=== PATIENT | female | born 1995 | race Caucasian/White ===

== ENCOUNTER → 2018-03-08 17:31 | Outpatient (CLI) | payer MEDICAID, SELFPAY ==
[2018-03-08 14:46] VITALS: BMI 25.0
[2018-03-12 13:55] LABS: HPV Reflexed? NOT INDICATED
--- OUTSIDE RECORDS SUMMARY | 2018-05-11 04:45 | XMS RPT_ITS ---
:1995 Author Organization [facility] Care Team Providers Name Role Phone Mary Mcqueen Attending Unavailable Primay Care Physicia, No Referring Unavailable Mary Mcqueen Attending Unavailable Primay Care Physicia, No Primary Care Unavailable Mary Mcqueen Referring Unavailable Mary Mcqueen Attending Unavailable Mary Mcqueen Referring Unavailable Jo Jean Primary Care Unavailable PROBLEMS PROBLEMS DATE TYPE CONDITION / CODE ATTENDING STATUS SOURCE 03/09/2018 Unknown Z12.4 - Encounter Nadege Mcqueen for screening for [facility] malignant neoplasm [facility] cervix / Repository Z12.4(ICD-10) 03/08/2018 Unknown Z30.431 - Encounter Nadege Mcqueen for routine [facility] intrauterine Repository contraceptive device / Z30.431(ICD-10) PROCEDURES PROCEDURES No Procedure Records FoundRESULTS RESULTS TRANSVAGINAL Observed: 03/09/2018 Status: F Source: [place] NON- 2:15 PM [facility] REPOSITORY [facility] Imaging Services [address] [place] [address] Transvaginal Non- MR#: [id number] Acct: [id number] Name: BERONICA SAUL Rep #: [id number] : 1995 F 22 From: Chito Urbano MD PCP: Jo Jean MD Status: REG CLI Study: Transvaginal Non- Date of Exam: 03/09/18 Exam# [id number] Ordering Dr: Mary Mcqueen MD STUDY: ULTRASOUND OF THE FEMALE PELVIS - COMPLETE REASON FOR EXAM: Female, 22 years old. IUD placement. LMP: February 01, 2018. TECHNIQUE: Transabdominal and Transvaginal TECHNICAL QUALITY: Adequate. COMPARISON: None. FINDINGS: The uterus is retroflexed and is in a midline position. The uterus measures 10.4 cm x 5.9 cm x 3.8 cm. There is a Nabothian cyst of the cervix. The endometrium measures 5.9 mm in thickness, and is hyperechoic. There is no demonstrated endometrial mass. There is no demonstrated myometrial mass. The uterine echotexture is heterogeneous. Increased vascularity within the uterus. I.U.D. - The patient does have an I.U.D. the IUD is within the cervix. The right ovary is visualized. The right ovary measures 3.1 cm x 1.8 cm x 1.6 cm. There is no right ovarian cyst or ovarian mass. There is no visualized right adnexal mass or complex lesion. There is normal arterial and normal venous vascularity. The left ovary is visualized. The left ovary measures 3.6 cm x 3.4 cm x 2.1 cm. There is a 3 cm x 3.3 cm x 1.9 cm left ovarian cyst. There is no visualized left adnexal mass or complex lesion. There is normal arterial and normal venous vascularity. There is no fluid in the cul-de-sac. The pre void volume of the bladder was 102 ml. Polycystic ovary disease: No. US/Transvaginal Non- IMPRESSION: The IUD is seen within the cervix. Left ovarian cyst. Heterogeneous echotexture of the uterus without focal fibroids. Electronically Signed: Chito Urbano MD at 9:07 EST Tel [phone], Service support , CC: oJ Jean MD; Mary Mcqueen MD Hearth Feeder: Signed PELVIC (NON ) Observed: 03/09/2018 Status: F Source: [place] 1:48 PM [facility] REPOSITORY [facility] Imaging Services [address] [place] [address] Pelvic (Non ) MR#: [id number] Acct: [id number] Name: BERONICA SAUL Rep #: [id number] : 1995 F 22 From: Chito Urbano MD PCP: Jo Jean MD Status: REG CLI Study: Pelvic (Non ) Date of Exam: 03/09/18 Exam# [id number] Ordering Dr: Mary Mcqueen MD STUDY: ULTRASOUND OF THE FEMALE PELVIS - COMPLETE REASON FOR EXAM: Female, 22 years old. IUD placement. LMP: February 01, 2018. TECHNIQUE: Transabdominal and Transvaginal TECHNICAL QUALITY: Adequate. COMPARISON: None. FINDINGS: The uterus is retroflexed and is in a midline position. The uterus measures 10.4 cm x 5.9 cm x 3.8 cm. There is a Nabothian cyst of the cervix. The endometrium measures 5.9 mm in thickness, and is hyperechoic. There is no demonstrated endometrial mass. There is no demonstrated myometrial mass. The uterine echotexture is heterogeneous. Increased vascularity within the uterus. I.U.D. - The patient does have an I.U.D. the IUD is within the cervix. The right ovary is visualized. The right ovary measures 3.1 cm x 1.8 cm x 1.6 cm. There is no right ovarian cyst or ovarian mass. There is no visualized right adnexal mass or complex lesion. There is normal arterial and normal venous vascularity. The left ovary is visualized. The left ovary measures 3.6 cm x 3.4 cm x 2.1 cm. There is a 3 cm x 3.3 cm x 1.9 cm left ovarian cyst. There is no visualized left adnexal mass or complex lesion. There is normal arterial and normal venous vascularity. There is no fluid in the cul-de-sac. The pre void volume of the bladder was 102 ml. Polycystic ovary disease: No. US/Pelvic (Non ) IMPRESSION: The IUD is seen within the cervix. Left ovarian cyst. Heterogeneous echotexture of the uterus without focal fibroids. Electronically Signed: Chito Urbano MD at 9:07 EST Tel [phone], Service support , CC: Jo Jean MD; Mary Mcqueen MD Hearth Feeder: Signed ORACLE TECHNICAL DEVELOPER OFFICE VISIT Observed: 03/08/2018 Status: F Source: [place] REPORT 3:53 PM [facility] REPOSITORY [facility] [address] [place] [address]. [address] [place] [address] OFFICE VISIT Date of Service: 03/08/18 MR#: [id number] Acct: [id number] Name: BERONICA SAUL Rep #: [id number] : 1995 Provider: Mary Mcqueen MD Age/Sex: 22/F [place] [facility] [place]: Signed Intake Vital Signs03/08/18 Height 5 ft 2 in 03/08/18 Weight: 137 lb 03/08/18 Body Mass Index (BMI) 25.0 03/08/18 Blood Pressure 116/68 Intake Visit Reasons: ANNUAL Chief Complaint: NEW annual Advertising Vice President Required: No Is patient in pain?: No Allergies benzocaine [From Kank-A (with benzoin)] Adverse Reaction (Verified 03/08/18 14:47) Other benzoin [From Kank-A (with benzoin)] Adverse Reaction (Verified 03/08/18 14:47) Other cetylpyridinium chloride [From Kank-A (with benzoin)] Adverse Reaction (Verified 03/08/18 14:47) Other ciprofloxacin [From Cipro] Adverse Reaction (Verified 03/08/18 14:47) Nausea/Vom/Diarrhea ciprofloxacin HCl [From Cipro] Adverse Reaction (Verified 03/08/18 14:47) Nausea/Vom/Diarrhea Medications levonorgestrel 20 mcg/24 hr (5 years) intrauterine device 1 insert INTRAUTERINE ONCE 03/08/18 [History Confirmed 03/08/18] Is last menstrual period known: No Post menopausal: No Patient : No : No PFSH Medical History Anxiety (Acute) Surgical History delivery delivered (Acute) Family History Grandmother Breast cancer Unknown Diabetes Heart disease Hypertension Social History Smoking Status: Never smoker alcohol intake: never substance use type: does not use caffeine: No what type of physical activity do you participate in: walking seatbelt use: always do you feel safe at home: Yes additional social history: single- unemployed Pregancy History 1 Elective abortions Hx Para 1 Spontaneous abortions Past Pregnancies Del. DatName GA/WeeksOutcome Route [facility] GLafloyd LgAnesthesDel LocaProviderFOB e ht en ia tn Unknown 2016 Manas live birC-sectio Female [facility] Daisha nn th - fuln OBGYN l term Delivery Date: On 03/08/18 @ 14:50 [facility] C/S D cell, PP hemorrhage, Blood Transfusion HPI ANNUAL: Details: BERONICA SAUL is a 22 year old who presents for annual exam. Last PAP: never History of abnormal PAP: no Female Reproductive History Cycle Length: 21-35 Bleeding Duration: 7 Control Method: iud ROS Const Constitutional: Reports as per HPI; denies poor appetite, fatigue, increased appetite, weight gain or weight loss Cardio Card: Denies chest pain Resp Resp: Denies dyspnea or cough GI GI: Reports as per HPI; denies bloating, abdominal pain, constipation, vomiting or nausea : Reports as per HPI and other; denies blood in urine, vaginal odor, vaginal itching, vaginal dryness, vaginal discharge, urinary urgency, urinary incontinence, urinary frequency, pelvic pain, painful urination, difficulty urinating, prolapse symptoms or nipple discharge Skin Skin/Breast: Denies breast pain, breast skin changes, nipple discharge, breast lump or changing lesions Exam Const General: cooperative, healthy appearing, comfortable, no acute distress, well developed, well groomed [facility] Head: normal to inspection, normocephalic Ears: hearing grossly normal bilaterally, external ears normal Nose: external nose normal Face and sinus: normal facial exam Neck Neck: normal visual inspection, full ROM, no lymphadenopathy Thyroid: thyroid normal Chest Chest palpation AND inspection: normal inspection of the chest Breast inspection: normal inspection of the breasts, normal inspection of the axillae Breast palpation: normal palpation of the breasts, normal palpation of the axillae, no axillary lymphadenopathy Resp Effort AND Inspection: normal respiratory effort GI Inspection: normal to inspection, non-distended Palpation: no guarding, soft, no hepatosplenomegaly General: bladder normal to palpation External Female Exam: normal external appearance, normal appearance of the urethra, no lesions Urethra: normal appearance of the urethra, normal palpation Speculum Exam - Vagina: normal appearance of the vagina, normal vaginal discharge Speculum Exam - Cervix: normal appearance of the cervix, no cervical discharge, no lesions, nontender Bimanual Exam- Vagina AND Uterus: No cervical tenderness, normal bimanual exam, uterine size normal, bladder normal to palpation, uterine mobility normal, uterine consistency normal, uterus non-tender, no cervical motion tenderness Bimanual Exam- Adnexa, other: normal adnexae, no adnexal masses, adnexae non-tender Skin General: no rashes or lesions noted Neuro General: alert, moves all extremities, no focal motor deficits Extrem General: no pedal edema, normal to inspection Psych Appearance: grossly normal Mental Status: mental status grossly normal Affect: normal affect Speech and Movement: speech and movement normal Attitude: cooperative Assessment AND Plan Problems 1. Encounter for gynecological examination with abnormal finding Z01.411 2. IUD check up Z30.431 Plan iud strings not palpated or seen- recommend us. discussed control and wants IUD removed and nexplanon inserted Cervical cancer screening: pap Breast cancer screening: clinical STD prevention and contraceptive options including their risks, benefits, and alternatives were reviewed with the patient and she chooses: iud wants nexplanon Encouraged maintenance of a healthy weight and active lifestyle and handout given. Calcium/vitamin D recommendations provided. Annual exam handout including recommendations for good health guidelines and basic screening information given. Problem list up to date, see problem list details for any additional plan information. follow up in one year for annual health maintenance exam or sooner if needed. Orders Orders: Coding Level of Care Code Off vis,new,prev 18-39yrs Diagnoses Encounter for gynecological examination with abnormal finding Z01.411 Gynecological examination findings: abnormal findings PRESENT IUD check up Z30.431 03/08/18 3743 <Electronically signed by Mary Mcqueen MD> Date Mary Mcqueen MD Cosigner Signature: Date (if applicable) CC: PAP I-G W/RFX Collected: 03/08/2018 Status: F Source: [place]HA HRHPV-APTIMA 2:00 PM [facility] REPOSITORY Order Comment: CYTOLOGY INFORMATION: - CLINICAL INFORMATION: - DATE LMP/MENOPAUSE: LMP - COLLECTION VIAL: Thin Prep Vial - CARE CENTER MANAGER SOURCE: CERVICAL - COLLECTION TECHNIQUE: BRUSH/SPATULA Specimen Comment: [id number] Specimen Comment: Source.............Cervix Specimen Comment: No. of containers..01 ThinPrep Vial TYPE CODE TESTS RESULT OUT OF RANGE REFERENCE UNITS LAB L7400.0800 . Normal DIAGN Comment Result Comment: NEGATIVE FOR INTRAEPITHELIAL LESION OR MALIGNANCY. LAB L7400.0900 . Normal ADEQ Comment Result Comment: Satisfactory for evaluation. Endocervical and/or squamous metaplastic cells (endocervical component) are present. LAB L7400.1400 . Normal PERFORM Comment Result Comment: Robles Rios, Excel Analyst (ASCP) LAB L7400.2575 . Normal TEST METHOD Comment Result Comment: This liquid based ThinPrep(R) pap test was screened with the use of an image guided system. LAB L7400.2600 . Normal . COMM LAB L7400.2700 . Normal PAPSMR Comment Result Comment: The Pap smear is a screening test designed to aid in the detection of premalignant and malignant conditions of the uterine cervix. It is not a diagnostic procedure and should not be used as the sole means of detecting cervical cancer. Both false-positive and false-negative reports do occur. LAB L7400.2800 . Normal HPV RFLX Comment Result Comment: The HPV DNA reflex criteria were not met with this specimen result therefore, no HPV testing was performed. Performed at: - [facility] [place] [id number] Research Assistant Professor: Evon Clinton MD, Phone: [phone] Performed By: #### L7400.0353 #### [facility] (refer to report for specific site) refer to report for address and phone number ALLERGIES ALLERGIES DATE TYPE / NAME / CODE REACTION SEVERITY SOURCE CODE 03/08/2018 Drug ciprofloxacin Nausea/Vom/Jessica Unknown [place] Allergy/41 HCl/[id number](RXNORM rrhea [facility] [id number]([facility]) Repository 03/08/2018 Drug benzocaine/[id number] Other Unknown [place] Allergy/41 (RXNORM) [facility] [id number]([facility]) Repository 03/08/2018 Drug benzoin/[id number](RX Other Unknown [place] Allergy/41 NORM) [facility] [id number]([facility]) Repository 03/08/2018 Drug ciprofloxacin/R774665 Nausea/Vom/Jessica Unknown [place] Allergy/41 882(RXNORM) rrhea [facility] [id number]([facility]) Repository 03/08/2018 Drug cetylpyridinium Other Unknown [place] Allergy/41 chloride/[id number](R [facility] [id number]([facility]) Repository ENCOUNTERS ENCOUNTERS ADMIT/DISCHARGE ACCOUNT ADMITTING ENCOUNTER LOCATION SOURCE NUMBER CLASS 03/09/2018 [id number] Ambulatory [place] [facility] ing:US Repository 03/08/2018 [id number] Ambulatory [place] [facility] ing:[facility] Repository 03/08/2018/ [id number] Ambulatory BMSBuilding:B Daisha [address] [facility] Repository PAYERS PAYERS ENCOUNTER GUARANTOR PAYER SUBSCRIBER SOURCE 03/09/2018 BERONICA [facility] BERONICA [id number] Insurance:[facility] SAIMAB: [facility] YASSINE nuñez Number: [id number] [id number] Repository [address]Jkr: (330) Date:2018-03-08P O [phone] () [address]ATTN: [place] [address]PF: 03/09/2018 Secondary NOT GIVENUNK Da[place] Insurance:SELF PAY [facility] Number: Effective Repository Date:2018-03-08 03/08/2018 BERONICA [facility] Primary BERONICA [id number] Insurance:CARESOURCEP MILLERDOB: Community [address] olicy Number: [id number] [id number] Repository [address]Sam: (330) Date:2018-03-08P O [phone] () [address]ATTN: [place] [address]MK: 03/08/2018 Secondary NOT GIVENUNK [place] Insurance:SELF PAY [facility] Number: Effective Repository Date:2018-03-08 03/08/2018 BERONICA [facility] BERONICA [id number] Insurance:CARESOURCEP MILLERDOB: Community [address] olicy Number: [id number] [id number] Repository [address]Uou: (330) Date:2017-11-16P O [phone] () [address]ATTN: [place] [address]NO: 03/08/2018 Secondary NOT GIVENUNK Daisha Insurance:SELF PAY [facility] Number: Effective Repository Date:2018-03-08
== END ==
PROVIDERS: Referring Provider Obstetrics & Gynecology; Visit Provider Obstetrics & Gynecology
DX: Z12.4 Encounter for screening for malignant neoplasm of cervix (principal)
CPT/HCPCS: 87624; 88175; G0145

== ENCOUNTER → 2018-03-09 13:46 | Outpatient (CLI) | payer MEDICAID, SELFPAY ==
[2018-03-08 14:46] VITALS: BMI 25.0
--- NOTE | 2018-03-09 13:48 | US_ITS ---
STUDY: ULTRASOUND OF THE FEMALE PELVIS - COMPLETE REASON FOR EXAM: Female, 22 years old. IUD placement. LMP: February 01, 2018. TECHNIQUE: Transabdominal and Transvaginal TECHNICAL QUALITY: Adequate. COMPARISON: None. FINDINGS: The uterus is retroflexed and is in a midline position. The uterus measures 10.4 cm x 5.9 cm x 3.8 cm. There is a Nabothian cyst of the cervix. The endometrium measures 5.9 mm in thickness, and is hyperechoic. There is no demonstrated endometrial mass. There is no demonstrated myometrial mass. The uterine echotexture is heterogeneous. Increased vascularity within the uterus. I.U.D. - The patient does have an I.U.D. the IUD is within the cervix. The right ovary is visualized. The right ovary measures 3.1 cm x 1.8 cm x 1.6 cm. There is no right ovarian cyst or ovarian mass. There is no visualized right adnexal mass or complex lesion. There is normal arterial and normal venous vascularity. The left ovary is visualized. The left ovary measures 3.6 cm x 3.4 cm x 2.1 cm. There is a 3 cm x 3.3 cm x 1.9 cm left ovarian cyst. There is no visualized left adnexal mass or complex lesion. There is normal arterial and normal venous vascularity. There is no fluid in the cul-de-sac. The pre void volume of the bladder was 102 ml. Polycystic ovary disease: No. US/Pelvic (Non ) IMPRESSION: The IUD is seen within the cervix. Left ovarian cyst. Heterogeneous echotexture of the uterus without focal fibroids. Electronically Signed: Chito Urbano MD at 9:07 EST Tel [phone], Service support ,
--- NOTE | 2018-03-09 14:14 | US_ITS ---
STUDY: ULTRASOUND OF THE FEMALE PELVIS - COMPLETE REASON FOR EXAM: Female, 22 years old. IUD placement. LMP: February 01, 2018. TECHNIQUE: Transabdominal and Transvaginal TECHNICAL QUALITY: Adequate. COMPARISON: None. FINDINGS: The uterus is retroflexed and is in a midline position. The uterus measures 10.4 cm x 5.9 cm x 3.8 cm. There is a Nabothian cyst of the cervix. The endometrium measures 5.9 mm in thickness, and is hyperechoic. There is no demonstrated endometrial mass. There is no demonstrated myometrial mass. The uterine echotexture is heterogeneous. Increased vascularity within the uterus. I.U.D. - The patient does have an I.U.D. the IUD is within the cervix. The right ovary is visualized. The right ovary measures 3.1 cm x 1.8 cm x 1.6 cm. There is no right ovarian cyst or ovarian mass. There is no visualized right adnexal mass or complex lesion. There is normal arterial and normal venous vascularity. The left ovary is visualized. The left ovary measures 3.6 cm x 3.4 cm x 2.1 cm. There is a 3 cm x 3.3 cm x 1.9 cm left ovarian cyst. There is no visualized left adnexal mass or complex lesion. There is normal arterial and normal venous vascularity. There is no fluid in the cul-de-sac. The pre void volume of the bladder was 102 ml. Polycystic ovary disease: No. US/Transvaginal Non- IMPRESSION: The IUD is seen within the cervix. Left ovarian cyst. Heterogeneous echotexture of the uterus without focal fibroids. Electronically Signed: Chito Urbano MD at 9:07 EST Tel [phone], Service support ,
--- OUTSIDE RECORDS SUMMARY | 2018-05-11 18:38 | XMS RPT_ITS ---
[...] - Encounter Nadege Mcqueen for screening for [facility] malignant neoplasm [facility] cervix / Repository Z12.4(ICD-10) 03/08/2018 Unknown Z30.431 - Encounter Nadege Mcqueen for routine [facility] intrauterine Repository contraceptive device / Z30.431(ICD-10) PROCEDURES PROCEDURES No Procedure Records FoundRESULTS RESULTS TRANSVAGINAL Observed: 03/09/2018 Status: F Source: [place] NON- 2:15 PM [facility] REPOSITORY [facility] Imaging Services [address] [place] [address] Transvaginal Non- MR#: [id number] Acct: [id number] Name: BERONICA SAUL Rep #: [id number] : 1995 F 22 From: Chito Urbano MD PCP: Jo Jean MD Status: REG CLI Study: Transvaginal Non- Date of Exam: 03/09/18 Exam# [id number] Ordering Dr: Mary Mcqueen MD STUDY: ULTRASOUND [...] Chito Urbano MD at 9:07 EST Tel [phone], Service support , CC: Jo Jean MD; Mary Mcqueen MD Scratch Brusher: Signed PELVIC (NON ) Observed: 03/09/2018 Status: F Source: DAISHA 1:48 PM [facility] REPOSITORY [facility] Imaging Services [address] [place] [id number] Pelvic (Non ) MR#: [id number] Acct: [id number] Name: BERONICA SAUL Rep #: [id number] : 1995 F 22 From: Chito Urbano MD PCP: Jo Jean MD Status: REG CLI Study: Pelvic (Non ) Date of Exam: 03/09/18 Exam# [id number] Ordering Dr: Mary Mcqueen MD STUDY: ULTRASOUND [...] Chito Urbano MD at 9:07 EST Tel [phone], Service support , CC: Jo Jean MD; Mary Mcqueen MD Scratch Brusher: Signed SECURED ENTRANCE MONITOR OFFICE VISIT Observed: 03/08/2018 Status: F Source: [place] REPORT 3:53 PM [facility] REPOSITORY [facility] [address] [place] [address]. [address] [place] [address] OFFICE VISIT Date of Service: 03/08/18 MR#: [id number] Acct: [id number] Name: BERONICA SAUL Rep #: [id number] : 1995 Provider: Mary Mcqueen MD Age/Sex: 22/F Location: [facility] Status: Signed Intake Vital Signs03/08/18 Height 5 ft 2 in 03/08/18 Weight: 137 lb 03/08/18 Body Mass Index (BMI) 25.0 03/08/18 Blood Pressure 116/68 Intake Visit Reasons: ANNUAL Chief Complaint: NEW annual [employer] Required: No Is patient in pain?: No [...] abortions Past Pregnancies Del. DatName GA/WeeksOutcome Route [facility] GLafloyd LgAnesthesDel LocaProviderFOB e ht en ia tn Unknown 2016 [facility] live birC-sectio Female [facility] Daisha nn th - fuln OBGYN l [...] no acute distress, well developed, well groomed [facility] Head: normal to inspection, normocephalic Ears: [...] findings PRESENT IUD check up Z30.431 03/08/18 [id number] <Electronically signed by Mary Mcqueen MD> Date Mary Mcqueen MD Cosigner Signature: Date (if applicable) CC: PAP I-G W/RFX Collected: 03/08/2018 Status: F Source: DAISHA HRHPV-APTIMA 2:00 PM [facility] REPOSITORY Order Comment: CYTOLOGY INFORMATION: - CLINICAL INFORMATION: - DATE LMP/MENOPAUSE: LMP - COLLECTION VIAL: Thin Prep Vial - CORN PICKER SOURCE: CERVICAL - COLLECTION TECHNIQUE: BRUSH/SPATULA Specimen Comment: [id number] Specimen Comment: Source.............Cervix Specimen Comment: No. of containers..01 ThinPrep Vial TYPE CODE TESTS RESULT OUT OF RANGE REFERENCE UNITS LAB L7400.0800 . Normal DIAGN Comment Result Comment: NEGATIVE FOR INTRAEPITHELIAL LESION OR MALIGNANCY. LAB L7400.0900 . Normal ADEQ Comment Result Comment: Satisfactory for evaluation. Endocervical and/or squamous metaplastic cells (endocervical component) are present. LAB L7400.1400 . Normal PERFORM Comment Result Comment: Robles Rios, Parts Clerk (ASCP) LAB L7400.2575 . Normal TEST METHOD [...] HPV testing was performed. Performed at: - [facility] [place] [id number] Ager Operator: Evon Clinton MD, Phone: [phone] Performed By: #### L7400.0353 #### [facility] (refer to report for specific site) refer to report for address and phone number ALLERGIES ALLERGIES DATE TYPE / NAME / CODE REACTION SEVERITY SOURCE CODE 03/08/2018 Drug ciprofloxacin Nausea/Vom/Jessica Unknown [place] Allergy/41 HCl/[id number](RXNORM rrhea [facility] [id number]([facility]) Repository 03/08/2018 Drug benzocaine/[id number] Other Unknown [place] Allergy/41 (RXNORM) [facility] 1352381([facility]) Repository 03/08/2018 Drug benzoin/W193504153(RX Other Unknown [place] Allergy/41 NORM) [facility] [id number]([facility]) Repository 03/08/2018 Drug ciprofloxacin/I824938 Nausea/Vom/Jessica Unknown [place] Allergy/41 882(RXNORM) rrhea [facility] 3063835([facility]) Repository 03/08/2018 Drug cetylpyridinium Other Unknown [place] Allergy/41 chloride/[id number](R [facility] 8290563([facility]) Repository ENCOUNTERS ENCOUNTERS ADMIT/DISCHARGE ACCOUNT ADMITTING ENCOUNTER LOCATION SOURCE NUMBER CLASS 03/09/2018 [id number] Ambulatory Daisha [place] 7 [facility] ing:US Repository 03/08/2018 [id number] Ambulatory [place] 9 [facility] ing:[facility] Repository 03/08/2018/ [id number] Ambulatory BMSBuilding:B Daisha [address] [facility] Repository PAYERS PAYERS ENCOUNTER GUARANTOR PAYER SUBSCRIBER SOURCE 03/09/2018 BERONICA Ward Primary BERONICA [id number] [facility] SAIMAB: [facility] YASSINE nuñez Number: [id number] [id number] Repository [address]Frg: [phone]) Date:2018-03-08P O [phone] () [address]ATTN: [place] [address]FS: 03/09/2018 Secondary NOT GIVENUNK Daisha Insurance:SELF PAY [facility] Number: Effective Repository Date:2018-03-08 03/08/2018 BERONICA Ward Primary BERONICA [id number] Insurance:CARESOURCEP MILLERDOB: Community [address] olicy Number: [id number] [id number] Repository [address]Ftx: [phone] Date:2018-03-08P O [phone] () [address]ATTN: [place] [address]YN: 03/08/2018 Secondary NOT GIVENUNK [place] Insurance:SELF PAY [facility] Number: Effective Repository Date:2018-03-08 03/08/2018 BERONICA [facility] BERONICA [id number] Insurance:[employer]P MILLERDOB: Community [address] olicy Number: [id number] [id number] Repository [address]Mzx: [phone] Date:2017-11-16P O [phone] () [address]ATTN: [place] [address]VA: 03/08/2018 Secondary NOT GIVENUNK Daisha Insurance:SELF PAY [facility] Number: Effective Repository Date:2018-03-08
== END ==
PROVIDERS: Family Provider Internal Medicine; PCP Internal Medicine; Referring Provider Obstetrics & Gynecology; Visit Provider Obstetrics & Gynecology
DX: Z30.431 Encounter for routine checking of intrauterine contraceptive device (principal)
CPT/HCPCS: 76830; 76856; 93976

== ENCOUNTER 2018-10-08 13:12 | Emergency (ER) | payer OTHER, SELFPAY ==
[2018-03-18 16:11] VITALS: BMI 25.4
[2018-10-08 13:14] VITALS: BP 125/84; PULSE 127; RESP 18; TEMP 36.7; O2SAT 99; BMI 21.9
--- NOTE | 2018-10-08 14:49 | ED.VIS.UPPEX ---
History of Present Illness Chief Complaint: Laceration Informant: Patient Occurred: Today - JPTA Mechanism/Context: Incised Context: Sudden Onset Timing: Continuous Quality of Pain: - - sore Location: left ring finger Current Severity: Mild Maximum Severity: Moderate Worsened by: palpation Relieved by: leaving alone Associated Symptoms: Negative for: Parasthesia, Weakness, Loss of Funtion Narrative: Patient was prepping food at a restaurant, cutting tomatoes and accidentally cut her left ring finger. She is having soreness, but was mainly concerned about the bleeding because he continues to ooze a lot. She is healthy. Last tetanus unknown. RHD. Tetanus Immunization: >10 years Past Medical History - Allergies and Home Meds Allergies/Adverse Reactions: Allergies benzocaine [From Kank-A (with benzoin)] Adverse Reaction (Verified 10/08/18 13:14) Other benzoin [From Kank-A (with benzoin)] Adverse Reaction (Verified 10/08/18 13:14) Other cetylpyridinium chloride [From Kank-A (with benzoin)] Adverse Reaction (Verified 10/08/18 13:14) Other blisters in mouth ciprofloxacin [From Cipro] Adverse Reaction (Verified 10/08/18 13:14) Nausea/Vom/Diarrhea ciprofloxacin HCl [From Cipro] Adverse Reaction (Verified 10/08/18 13:14) Nausea/Vom/Diarrhea Primary Care Physician: Care Physician,No Primary [NON-STAFF] - Past Medical History: None Smoking Status: Never smoker Review of Systems Musculoskeletal: Reports: Extremity Pain. Denies: Swelling Skin: Reports: Wounds. Denies: Rash Neurological: Denies: Headache, Weakness, Numbness Physical Exam Vital Signs/Narrative: Vital Signs Temp Pulse Resp BP Pulse Ox 10/08/18 13:14 98.1 F 127 H 18 125/84 H 99 General: Well nourished, Well developed, - - well-appearing, nad Extremeties: Mild tenderness at the tip of the left middle finger where the laceration is, no subungual hematoma or nail damage, all tendon function intact, full range of motion throughout. No other injuries. No gross contamination. Skin: Normal color, Trauma - 0.5cm linear dermal laceration radial tip of left middle finger without nail or nail bed injury. oozing dark red nonpulsatile blood. Neurological: Alert, Oriented x3, Cranial nerves II-XII grossly intact, Normal Strength, Normal Sensation, Normal Gait Psychological: Normal affect, Normal Mood Diagnostic/Tx/Re-eval - Medical Decision Making After topical let and local lidocaine, laceration was repaired. See attached procedure note. Tetanus was updated. She was to go back to work tonight. 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 I told her that would be okay as long as she is wearing nitrile or latex gloves. ED Disposition - Plan for ED Patient: Disposition: Home or Assisted Living Diagnosis: Immunization, tetanus-diphtheria, Laceration of left middle finger Instructions: LACERATION, Extrem (Suture, Staple or Tape) Referrals: Corporate,Care [GROUP OF PHYSICIANS] - 10 Day for suture removal
[2018-10-08] MEDS: Diphth,Pertuss(Acell),Tet Vac 0.5 ML Vial IM (15:00)
[2018-10-08] MEDS: Lidocaine/Epi/Tetracaine 50 ML 1 APPLIC TOPICAL (15:01)
--- NOTE | 2018-10-08 16:32 | ED.VISSUMM ---
- ER Visit Summary Date of Service: 10/08/18 Procedure note: Wound was cleansed with chlorhexidine soap. Anesthetized initially with LET and then with 1% lidocaine without epinephrine. Copiously irrigated with normal saline. Wound was explored there is no foreign material present. It was closed with 3 simple interrupted 4-0 ethilon sutures. The patient tolerated it well. This note was generated with [employer] dictation software. It may contain incorrect words, spelling, and punctuation that were not noted in review of the chart prior to signing ED Disposition - Plan for ED Patient: Referrals: Care Physician,No Primary [NON-STAFF] -
== END 2018-10-08 16:56 | disposition home or self-care (01) ==
PROVIDERS: Emergency Provider Emergency Medicine; Family Provider Internal Medicine; PCP Internal Medicine
DX: S61.213A Laceration without foreign body of left middle finger without damage to nail, initial encounter (principal); W26.9XXA Contact with unspecified sharp object(s), initial encounter; Y93.G1 Activity, food preparation and clean up; Y92.511 Restaurant or cafe as the place of occurrence of the external cause; Y99.0 Civilian activity done for income or pay
CPT/HCPCS: 12001; 90471; 90715; 99283